=== PATIENT | female | born 1990 | race Caucasian/White ===

== ENCOUNTER 2016-12-31 15:28 | Emergency (ER) | payer OTHER, BC ==
[~2016-12-31] VITALS: Ht 170.2 cm; Wt 92.4 kg
[2016-12-31] MEDS ORDERED: FLEXERIL10 MG PO (18:57)
[2016-12-31] MEDS ORDERED: MOTRIN800 MG PO (18:57)
[2016-12-31] MEDS ORDERED: PREDNISONE20 MG PO (18:57)
[2016-12-31 19:16] VITALS: BP 127/87
== END 2016-12-31 19:17 | disposition home or self-care (01) ==
LOC: EME 15:28
DX: S16.1XXA Strain of muscle, fascia and tendon at neck level, initial encounter (principal); S39.012A Strain of muscle, fascia and tendon of lower back, initial encounter; V49.40XA Driver injured in collision with unspecified motor vehicles in traffic accident, initial encounter; F17.200 Nicotine dependence, unspecified, uncomplicated
CPT/HCPCS: 72100; 99281; 99283; J1885; J7512